=== PATIENT | male | born 1970 | race Caucasian/White ===

== ENCOUNTER → 2021-11-10 | Outpatient (CLI) | payer BC ==
--- NOTE | 2021-11-10 10:50 | 2DMMODE ---
[place] [address] 2 D/M-MODE ECHOCARDIOGRAM Name: ILA TALBERT Room: [facility]#: [id number] Admission: 11/10/21 Attend Phys: iJm Tse MD Discharge: Date of : 66 Date of Service: 11/10/21 1050 Report #: [id number] THIS REPORT FOR: cc: Eddi Hummel Brad DO Blick, David R. MD [facility] ~ APPROVED REPORT Study performed: 11/10/2021 09:59:21 EXAM: Comprehensive 2D, Doppler, and color-flow Echocardiogram Patient Location: Out-Patient BSA: 2.18 HR: 67 bpm BP: 142/82 mmHg Other Information Study Quality: Good Indications Dyspnea 2D Dimensions IVSd: 12.48 (7-11mm) LVOT Diam: 21.26 (18-24mm) LVDd: 50.03 mm PWd: 12.30 (7-11mm) Ascending Ao: 29.32 (22-36mm) LVDs: 31.18 (25-40mm) Aortic Root: 27.54 mm Volumes Left Atrial Volume (Systole) LA ESV Index: 19.60 mL/m2 Aortic Valve AoV Peak Geovanni.: 1.22 m/s AO Peak Gr.: 5.98 mmHg LVOT Max P.84 mmHg AO Mean Gr.: 3.31 mmHg LVOT Mean P.39 mmHg LVOT Max V: 1.21 m/s AO V2 VTI: 25.95 cm LVOT Mean V: 0.69 m/s ELIZABETH (VTI): 3.43 cm2 LVOT V1 VTI: 25.09 cm Mitral Valve E/A Ratio: 1.20 [place] [address] 2 D/M-MODE ECHOCARDIOGRAM Name: ILA TALBERT Room: [facility]#: [id number] Admission: 11/10/21 Attend Phys: Jim Tse MD Discharge: Date of : 66 Date of Service: 11/10/21 1050 Report #: [id number] MV Decel. Time: 186.47 ms MV E Max Geovanni.: 0.67 m/s MV PHT: 54.08 ms MVA (PHT): 4.07 cm2 TDI E/Lateral E': 4.19 E/Medial E': 6.70 Medial E' Geovanni.: 0.10 m/s Lateral E' Geovanni.: 0.16 m/s Pulmonary Valve PV Peak Geovanni.: 1.05 m/s PV Peak Gr.: 4.37 mmHg Left Ventricle The left ventricle is normal size. There is normal LV segmental wall motion. Mild concentric left ventricular hypertrophy. Left ventricular systolic function is normal. The left ventricular ejection fraction is within the normal range. LVEF is 55-60%. The left ventricular diastolic function is normal. Right Ventricle The right ventricle is normal size. The right ventricular systolic function is normal. Atria The left atrium size is normal. The right atrium size is normal. Aortic Valve The aortic valve is normal in structure. No aortic regurgitation is present. There is no aortic valvular stenosis. Mitral Valve The mitral valve is normal in structure. Trace to mild mitral regurgitation. No evidence of mitral valve stenosis. Tricuspid Valve The tricuspid valve is normal in structure. There is no tricuspid valve regurgitation noted. Pulmonic Valve The pulmonary valve is normal in structure. There is no pulmonic valvular regurgitation. Great Vessels The aortic root is normal in size. IVC is [place] [address] 2 D/M-MODE ECHOCARDIOGRAM Name: ILA TALBERT Room: [facility] LETICIA VazquezLaureen#: [id number] Admission: 11/10/21 Attend Phys: Jim Tse MD Discharge: Date of : 66 Date of Service: 11/10/21 1050 Report #: [id number] collapses >50% with inspiration. Pericardium There is no pericardial effusion. <Conclusion> LVEF is 55-60%. Mild concentric left ventricular hypertrophy. Trace to mild mitral regurgitation. <ELECTRONICALLY SIGNED> By: Jim Tse MD, FAC 11/10/21 1050 49 [id number] Jim Tse MD, [facility] /INF
== END ==
LOC: M.CRD 08:35
PROVIDERS: ATTEND Internal Medicine Cardiovascular Disease
DX: I34.8 Other nonrheumatic mitral valve disorders (principal)